=== PATIENT | female | born 1960 | race Caucasian/White ===

== ENCOUNTER → 2018-03-19 | Outpatient (CLI) | payer OTHER ==
[2014-05-23 03:10] VITALS: BP 137/68
--- NOTE | 2018-03-19 17:51 | RAD ---
Bone mineral density exam History: Ovarian failure, screening Comparison: Baseline exam August 06, 2004 Findings: Bone mineral density examination utilizing DEXA was performed. Right femur bone mineral density of 823 mg/cm2 corresponds with a T score -1.1, Z score -0.6. Comparing with baseline exam there has been -7.0% decrease. The bone mineral density of the lumbar spine was 1.054 g/cm2 which corresponds with a T-score of -1.0, Z score -0.5. Compared with the baseline exam, there has been -6.9% decrease. By World Congress on Osteoporosis criteria, a T score of 0 to-1 SD is considered to be within normal limits. A T score of -1 to -2.5 SD is considered osteopenia. A T score less than -2.5 SD is considered osteoporosis Impression: 1. There is osteopenia of the right femur. Bone mineral density of the lumbar spine is within normal limits although borderline osteopenia. Electronically signed by: Maico Em MD (03/19/2018 5:47 PM) [id number]
== END | disposition home or self-care (01) ==
LOC: DXRAD 10:08
PROVIDERS: ATTEND Family Medicine
DX: M85.88 Other specified disorders of bone density and structure, other site (principal)
CPT/HCPCS: 77080

== ENCOUNTER → 2020-08-08 | Outpatient (CLI) | payer OTHER ==
[2014-05-23 03:10] VITALS: BP 137/68
--- NOTE | 2020-08-08 11:50 | RAD ---
INDICATION: Screening for osteopenia/osteoporosis. Postmenopausal evaluation. COMPARISON: 03/19/2018 TECHNIQUE: Bone densitometry was performed through the lumbar spine and proximal femur. IMPRESSION: Lumbar Spine: BMD: 0.96 T-Score: -1.9 Range: Osteopenic. Decreased by 9 percent from prior Proximal Femur: BMD: 0.76 T-Score: -1.6 Range: Osteopenic. Decreased by 7 percent from prior World Health Organization Criteria for Bone Density: T-Score: > -1.0: Normal Range < -1.0 to -2.5: Osteopenic Range < -2.5: Osteoporotic Range Electronically signed by: Ulysses Mcdonald MD (08/08/2020 11:47 AM) [id number]
== END ==
LOC: DXRAD 09:37
PROVIDERS: ATTEND Family Medicine
DX: M85.88 Other specified disorders of bone density and structure, other site (principal)
CPT/HCPCS: 77080